=== PATIENT | female | born 1935 | race Caucasian/White ===

== ENCOUNTER 2017-07-20 14:17 | Emergency (ER) | payer MEDICARE, MEDICAID ==
[2015-10-15 03:38] VITALS: BMI 29.1
[~2017-07-20 14:17] MED LIST: AUGMENTIN 500-11 TA1 PO; BENAZEPRIL HCL10 MG PO; CALAN SR240 MG PO; ISOSORBIDE MONO30 M1 PO; NEXIUM40 MG PO; PREDNISONE20 MG PO; PROBIOTIC1 EAC1 PO; SINGULAIR10 MG PO; SYMBICORT 16010.2 GM INH; ULTRAM50 MG PO; XANAX0.5 MG PO; ZITHROMAX500 MG PO
[2017-07-20 14:46] LABS: BASOPHILS 0.5 % (0-2); EOSINOPHILS 1.1 % (0-7); HEMATOCRIT 43.3 % (36.0-48.0); HEMOGLOBIN 13.9 g/dL (12-16); IMMATURE GRANULOCYTES 0.7 % (0-5); LYMPHOCYTES 21.1 % (15-50); MCH 28.3 pg (26.0-34.0); MCHC 32.1 g/dL (31.0-37.0); MCV 88.2 fL (80.0-100.0); MEAN PLATELET VOLUME 9.9 fL (7.4-10.4); MONOCYTES 12.8 % (2-11); NEUTROPHILS 63.8 % (40-80); RBC 4.91 10x6/uL (4.00-5.40); RDW 14.5 % (11.5-14.5); WBC 10.6 10x3/uL (4.8-10.8)
[2017-07-20 14:54] LABS: APPEARANCE CLEAR (CLEAR); COLOR DK YELLOW (YELLOW); NITRITE NEGATIVE (NEGATIVE); PROTEIN TRACE mg/dL (NEGATIVE)
[2017-07-20 14:55] LABS: BILIRUBIN NEGATIVE (NEGATIVE); GLUCOSE NEGATIVE (NEGATIVE); KETONE NEGATIVE (NEGATIVE); UROBILINOGEN NORMAL (NORMAL)
[2017-07-20 15:01] LABS: PLATELET COUNT 226 10x3/uL (130-400)
[2017-07-20 15:03] LABS: ALBUMIN 3.5 g/dL (3.4-5.0); ANION GAP 11.9 mmol/L (8-16); BILIRUBIN - TOTAL 0.26 mg/dL (0.2-1.3); CALCIUM 8.5 mg/dL (8.5-10.1); CREATININE - SERUM 1.2 mg/dL (0.6-1.3); POTASSIUM - SERUM 3.9 mmol/L (3.5-5.1); PROTEIN - SERUM 6.8 g/dL (6.4-8.2)
== END 2017-07-20 17:29 | disposition home or self-care (01) ==
LOC: D.ER 14:17
PROVIDERS: Emergency Medicine
DX: E86.0 Dehydration (principal); R63.4 Abnormal weight loss; R00.0 Tachycardia, unspecified; J44.9 Chronic obstructive pulmonary disease, unspecified

== ENCOUNTER → 2019-06-30 12:50 | Outpatient (CLI) | payer MEDICARE, MEDICAID ==
[2015-10-15 03:38] VITALS: BMI 29.1
[2019-06-30 14:40] LABS: BASOPHILS 0.5 % (0-2); HEMATOCRIT 39.4 % (36.0-48.0); HEMOGLOBIN 12.4 g/dL (12-16); IMMATURE GRANULOCYTES 0.3 % (0-5); MCH 29.4 pg (26.0-34.0); MCHC 31.5 g/dL (31.0-37.0); MCV 93.4 fL (80.0-100.0); MONOCYTES 10.5 % (2-11); NEUTROPHILS 60.7 % (40-80); RBC 4.22 10x6/uL (4.00-5.40); RDW 14.6 % (11.5-14.5); WBC 9.4 10x3/uL (4.8-10.8)
[2019-06-30 14:41] LABS: PLATELET COUNT 283 10x3/uL (130-400)
== END | disposition home or self-care (01) ==
LOC: D.LABREF 12:50
PROVIDERS: ATTEND Family Medicine
DX: J44.9 Chronic obstructive pulmonary disease, unspecified (principal); I50.9 Heart failure, unspecified

== ENCOUNTER → 2020-12-15 18:24 | Outpatient (CLI) | payer MEDICARE, MEDICAID ==
[2015-10-15 03:38] VITALS: BMI 29.1
[2020-12-15 18:52] LABS: BASOPHILS 0.4 % (0-2); EOSINOPHILS 4.8 % (0-7); HEMATOCRIT 36.6 % (36.0-48.0); HEMOGLOBIN 11.4 g/dL (12-16); IMMATURE GRANULOCYTES 1.5 % (0-5); LYMPHOCYTE ABS# 1.57 10x3/uL (1.18-3.74); LYMPHOCYTES 10.1 % (15-50); MCH 29.1 pg (26.0-34.0); MCHC 31.1 g/dL (31.0-37.0); MCV 93.4 fL (80.0-100.0); MEAN PLATELET VOLUME 10.3 fL (7.4-10.4); MONOCYTES 8.2 % (2-11); NEUTROPHIL ABS# 11.71 10x3/uL (1.56-6.13); PLATELET COUNT 263 10x3/uL (130-400); RBC 3.92 10x6/uL (4.00-5.40); RDW 16.4 % (11.5-14.5); WBC 15.6 10x3/uL (4.8-10.8)
[2020-12-15 19:32] LABS: ANION GAP 12.2 mmol/L (8-16); CARBON DIOXIDE 29.9 mmol/L (21.0-32.0); CREATININE - SERUM 0.8 mg/dL (0.6-1.3); POTASSIUM - SERUM 4.1 mmol/L (3.5-5.1)
== END | disposition home or self-care (01) ==
LOC: D.LABREF 18:24
PROVIDERS: ATTEND Family Medicine
DX: Z51.81 Encounter for therapeutic drug level monitoring (principal)